=== PATIENT | female | born 1955 | race Caucasian/White ===

== ENCOUNTER 2018-06-10 18:19 | Inpatient (IN) ==
[2018-06-10] MEDS ORDERED: Sodium Chloride 0.9% 1,000 ML PRIMARY IV ONE (18:46)
[2018-06-10 19:25] LABS: BASOPHILS # (AUTO) 0.04 10*3/UL; BASOPHILS % (AUTO) 0.3 % (0-1); EOSINOPHILS # (AUTO) 0.19 10*3/UL; EOSINOPHILS % (AUTO) 1.5 % (0-8); Hematocrit [HCT] 44.3 % (37.0-47.0); Hemoglobin [HGB] 14.3 g/dL (12.0-16.0); LYMPHOCYTES # (AUTO) 1.95 10*3/uL; MEAN CORPUSCULAR HGB CONC 32.3 g/dL (33-37); MEAN CORPUSCULAR VOLUME 92.9 FL (81-99); MEAN PLATELET VOLUME 10.2 FL (7.4-12.2); MONOCYTES # (AUTO) 0.48 10*3/UL (0.3-0.8); MONOCYTES % (AUTO) 3.7 % (5-15); NEUTROPHILS # (AUTO) 10.24 10*3/UL; NEUTROPHILS % (AUTO) 79.2 % (50-80); RED BLOOD COUNT 4.77 10^6/uL (4.20-5.40)
[2018-06-10 19:27] LABS: PLATELET MORPHOLOGY COMMENT NORMAL MORPHOLOGY (NORM); RBC MORPHOLOGY COMMENT NORMAL MORPHOLOGY (NORM); WBC MORPHOLOGY COMMENT NORMAL MORPHOLOGY (NORM)
[2018-06-10 19:41] LABS: BUN/CREATININE RATIO 18.18 (6-20)
--- NOTE | 2018-06-10 19:49 | PDOC ---
General Adult HPI - General Chief Complaint: General Medical Stated Complaint: Fever and not feeling that good for the last 3days Date Seen by Provider: 06/10/18 Time Seen by Provider: 18:20 Source: POSITIVE: Patient Exam Limitations: POSITIVE: No limitations Nurse's Notes Reviewed & Considered: Yes - History of Present Illness Initial Comment: The patient is a 63-year-old female who presents to the emergency department with complaints of fever and general malaise. She reports that several nights ago she had eaten some applesauce and cinnamon and her stomach became very upset. She ended up regurgitating some of this into the back of her throat when she was laying down. Ever since then she states she has not felt well. She states that she has been running a fever and had general malaise. She has had some mild cough however denies shortness of breath. She states that the pain in her stomach has improved at this point however she still feels queasy. She denies any sore throat or congestion. She has not had any pain or swelling in her extremities. Her oxygen levels were in the low 80s on room air on arrival and she was placed on O2 per nasal cannula. She does not normally wear oxygen at home. She does have a history of previous gastric bypass surgery several years ago and she states that after her surgery she was on oxygen for a period of time. She denies any known history of heart disease or blood clots. Have you received a tetanus shot in the past 10 years?: Unknown - Patient Home Medications Home Medications: Home Medications Ca 600 mg-D3 800 unit-mag oxide 50 qh-Ik-icxcbo-manganese-boron tablet 1 tab PO QDAY tab 01/18/17 ascorbic acid (vitamin C) 500 mg tablet 500 mg PO QDAY 01/18/17 cholecalciferol (vitamin D3) 2,000 unit tablet 2,000 unit PO QDAY tab 01/18/17 ferrous sulfate 325 mg (65 mg iron) tablet 325 mg PO QDAY tab 01/18/17 multivitamin with iron tablet 1 tab PO QDAY 01/18/17 omega-3 fatty acids-fish oil 360 mg-1,200 mg capsule 1 cap PO QDAY 01/18/17 ziprasidone 20 mg capsule 20 mg PO BID #180 cap 03/06/18 omeprazole 20 mg capsule,delayed release 20 mg PO QDAY #90 cap 03/13/18 - Patient Allergies Allergies/Adverse Reactions: Allergies Allergy/AdvReac Type Severity Reaction Status Date / Time simvastatin AdvReac NOT Verified 06/10/18 18:24 APPLICABLE Past Medical History - heen HEENT History: Denies History Cardiovascular History: DVTs, Hyperlipidemia Respiratory History: Asthma Gastrointestinal History: Denies History Additional Gastrointestinal History: ABDOMINAL PAIN Genitourinary History: Denies History Endocrine History: Type 2 Diabetes (oral) Additional Endocrine History: No longer symptomatic or taking medications after weight loss Musculoskeletal History: Denies History Prosthesis or Implant: No Neurological History: Denies History Blood Disorders: Denies History Psychiatric History: Other (please comment) Additional Psychiatric History: DELUSIONAL DISORDER Female Reproductive History: Denies History Obstetrical History: Denies History Cancer History: Denies History In Past Year Been Physically Harmed or Verbally Threatened: No History of MDRO: No History of Other Communicable Diseases: Yes (Mumps and measles) Tobacco Use: Never Smoker In the Past 12 Months, Have Used or Abuse Any Substance: None Previous Surgical History: Yes Type / Date of Surgery: GASTRIC BYPASS, VAG HYST,Alice, right elbow repair Anesthesia Reactions: No Malignant Hyperthermia: No Significant Family History: Cancer, Diabetes Additional Family History: Mother- diabetes, breast cancer. Brother-diabetes Past Medical History Reviewed: Reviewed - No Changes ROS - Limitations ROS Limitations: No Limitations Constitution: REPORTS: Chills, Fever, Other (General malaise) Cardiovascular: DENIES: Chest Pain Respiratory: REPORTS: Cough Non Productive. DENIES: Shortness Of Breath Neurological: REPORTS: Dizziness. DENIES: Headache, Numbness, Weakness Gastrointestinal: REPORTS: Abdominal Pain (She did have some epigastric abdominal pain which is now resolved), Nausea. DENIES: Vomitting Musculoskeletal: REPORTS: Denies MS Symptoms Genitourinary: REPORTS: Denies Symptoms Eyes: REPORTS: Denies Symptoms ENT: REPORTS: Denies Symptoms Skin: DENIES: Rash General Adult Exam - General Appearance General Appearance: POSITIVE: Alert, Cooperative, No Acute Distress - HEENT HEENT: POSITIVE: Head Inspection Nml, Ears Inspection Nml, Nose Inspection Nml, Pharynx Inspect. Nml - Neck Neck: POSITIVE: Normal Inspection. NEGATIVE: Lymphadenopathy - Respiratory Respiratory: POSITIVE: No Respiratory Distress, Other (She does have diminished breath sounds noted primarily on the right side) - Cardiovascular Cardiovascular: POSITIVE: Regular Rate & Rhythm, No Murmur Peripheral Pulses: Dorsalis-pedis (R): 2+, Dorsalis-pedis (L): 2+ - Abdomen Abdomen: Soft: (All Quadrants), Denies Tenderness: (All Quadrants), No Distention: (All Quadrants) - Skin Skin: POSITIVE: Normal Color, No Rash - Extremities Extremity: Normal ROM: (All Extremities), Normal Inspection: (All Extremities) - Neurological / Psychological Neurological: POSITIVE: Oriented X3, 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 CT of the chest showed no evidence of PE, there is a groundglass density in the left lung is most likely infectious in etiology per radiologist, moderate hiatal hernia. CT scan of the abdomen and pelvis shows no acute abnormalities per radiologist. Lab Results Reviewed by Me: Yes Lab Results:: Laboratory Results 06/10/18 06/10/18 06/10/18 19:12 19:12 19:12 WBC 12.93 H RBC 4.77 Hgb 14.3 Hct 44.3 MCV 92.9 MCH 30.0 MCHC 32.3 L RDW Std Deviation 42.6 RDW Coeff of Gayatri 12.8 Plt Count 222 MPV 10.2 Immature Gran % (Auto) 0.2 Neut % (Auto) 79.2 Lymph % (Auto) 15.1 Lyman % (Auto) 3.7 L Eos % (Auto) 1.5 Baso % (Auto) 0.3 Immature Gran # (Auto) 0.03 Neut # (Auto) 10.24 Lymph # (Auto) 1.95 Lyman # (Auto) 0.48 Eos # (Auto) 0.19 Baso # (Auto) 0.04 WBC Morphology Comment Normal morphology Plt Morphology Comment Normal morphology RBC Morph Comment Normal morphology D-Dimer 0.62 H VBG pH VBG pCO2 VBG HCO3 VBG Base Excess Sodium 137 Potassium 3.7 L Chloride 103 Carbon Dioxide 21 L Anion Gap 13 BUN 20 Creatinine 1.1 Estimated GFR 50 BUN/Creatinine Ratio 18.18 Glucose 191 H Calculated Osmolality 291.0 Lactic Acid Calcium 9.5 Magnesium 1.9 Total Bilirubin 0.7 AST 31 ALT 40 Alkaline Phosphatase 122 Troponin I C-Reactive Protein 19.3 H NT-Pro-B Natriuret Pep 65.3 Total Protein 7.0 Albumin 4.0 Globulin 3.0 Albumin/Globulin Ratio 1.30 Ur Collection Type Urine Color Urine Clarity Urine pH Ur Specific [place] Urine Protein Urine Glucose (UA) Urine Ketones Urine Occult Blood Urine Nitrate Urine Bilirubin Urine Urobilinogen Ur Leukocyte Esterase Urine RBC Urine WBC Ur Squamous Epith Cells Ur Renal Epithelial Cell Urine Crystals Urine Bacteria Urine Casts Urine Mucus Urine Trichomonas Urine Yeast Ur Culture Indicated? 06/10/18 06/10/18 06/10/18 19:12 19:12 19:14 WBC RBC Hgb Hct MCV MCH MCHC RDW Std Deviation RDW Coeff of Gayatri Plt Count MPV Immature Gran % (Auto) Neut % (Auto) Lymph % (Auto) Lyman % (Auto) Eos % (Auto) Baso % (Auto) Immature Gran # (Auto) Neut # (Auto) Lymph # (Auto) Lyman # (Auto) Eos # (Auto) Baso # (Auto) WBC Morphology Comment Plt Morphology Comment RBC Morph Comment D-Dimer VBG pH 7.48 H VBG pCO2 27 L VBG HCO3 20 L VBG Base Excess -3 L Sodium Potassium Chloride Carbon Dioxide Anion Gap BUN Creatinine Estimated GFR BUN/Creatinine Ratio Glucose Calculated Osmolality Lactic Acid 0.8 Calcium Magnesium Total Bilirubin AST ALT Alkaline Phosphatase Troponin I < 0.012 C-Reactive Protein NT-Pro-B Natriuret Pep Total Protein Albumin Globulin Albumin/Globulin Ratio Ur Collection Type Urine Color Urine Clarity Urine pH Ur Specific [place] Urine Protein Urine Glucose (UA) Urine Ketones Urine Occult Blood Urine Nitrate Urine Bilirubin Urine Urobilinogen Ur Leukocyte Esterase Urine RBC Urine WBC Ur Squamous Epith Cells Ur Renal Epithelial Cell Urine Crystals Urine Bacteria Urine Casts Urine Mucus Urine Trichomonas Urine Yeast Ur Culture Indicated? 06/10/18 21:06 WBC RBC Hgb Hct MCV MCH MCHC RDW Std Deviation RDW Coeff of Gayatri Plt Count MPV Immature Gran % (Auto) Neut % (Auto) Lymph % (Auto) Lyman % (Auto) Eos % (Auto) Baso % (Auto) Immature Gran # (Auto) Neut # (Auto) Lymph # (Auto) Lyman # (Auto) Eos # (Auto) Baso # (Auto) WBC Morphology Comment Plt Morphology Comment RBC Morph Comment D-Dimer VBG pH VBG pCO2 VBG HCO3 VBG Base Excess Sodium Potassium Chloride Carbon Dioxide Anion Gap BUN Creatinine Estimated GFR BUN/Creatinine Ratio Glucose Calculated Osmolality Lactic Acid Calcium Magnesium Total Bilirubin AST ALT Alkaline Phosphatase Troponin I C-Reactive Protein NT-Pro-B Natriuret Pep Total Protein Albumin Globulin Albumin/Globulin Ratio Ur Collection Type Clean catch urine Urine Color Yellow Urine Clarity Clear Urine pH 7.0 Ur Specific [place] <=1.005 Urine Protein Negative Urine Glucose (UA) Negative Urine Ketones Trace A Urine Occult Blood Trace-intact H Urine Nitrate Negative Urine Bilirubin Negative Urine Urobilinogen 0.2 Ur Leukocyte Esterase Small Urine RBC 0-1 Urine WBC 3-5 Ur Squamous Epith Cells Rare Ur Renal Epithelial Cell None Urine Crystals None Urine Bacteria None Urine Casts None Urine Mucus None Urine Trichomonas None Urine Yeast None Ur Culture Indicated? Culture not set CBC and BMP: 06/10/18 19:12 06/10/18 19:12 - Patient's Progress MDM / ED Course: The patient was afebrile here she had just taken some Tylenol at home. She is mildly tachycardic. Blood cultures and lactate were drawn with initial IV start. Her venous blood gas on arrival was unremarkable. She did receive 1 L bolus of normal saline. Her oxygen saturations were in the low to mid 80s on room air and she was placed on O2 per nasal cannula. Her blood work reveals an elevated white count at 12.9 and a CRP of 19.3. Her lactate was normal, d-dimer was mildly elevated, troponin was normal, glucose was 191, potassium was 3.4. Initial chest x-ray showed an ill-defined density in the left lung of unknown significance. CTA of the chest showed no evidence of PE, she does have groundglass density in the left lung most likely of infectious etiology per radiologist. CT scan of the abdomen and pelvis showed no acute abnormalities per radiologist. The respiratory panel was positive for rhinovirus/enterovirus. The patient has fever, hypoxia and evidence of pneumonia on CT. Given her history it is possible that this may be an aspiration pneumonia. These findings were discussed with the patient as well as with Dr. Hector. Dr. Hector has agreed to admit the patient for further treatment. She was started on Rocephin 2 g IV and Flagyl 500 mg IV. - Consult Counseled: POSITIVE: Patient, Family, RE: Lab Results, RE: Radiology Results, RE: DX, RE: Need for F/U Patient Care Time - Estimated PCT Patient Care Time (In Minutes): 35 Vital Signs - Recent Vital Signs Vital Signs: Vital Signs (Last 8 hours) Temp Pulse Resp BP Pulse Ox 06/10/18 18:19 97.9 F 122 H 22 138/86 94 - VS Reviewed Vital Signs Reviewed: Yes Discharge Clinical Impression: Pneumonia, Hypoxia, Hiatal hernia, Status post gastric bypass for obesity Discharge Disposition: Admit to Inpatient Condition: Stable Follow Up With: LAURA PHIPPS [Primary Care Provider] - Date Decision to Admit to Inpatient: 06/10/18 Time Decision to Admit to Inpatient: 21:30
--- NOTE | 2018-06-10 19:55 | EKG ---
[address] [address] Measurements Intervals [place] Rate: 102 P: 35 MT: 159 QRS: -14 QRSD: 96 T: 43 QT: 347 QTc: 406 Interpretive Statements SINUS TACHYCARDIA LEFT ATRIAL ENLARGEMENT RIGHT VENTRICULAR CONDUCTION DELAY POSSIBLE INFERIOR MYOCARDIAL INFARCTIO OF INDETERMINATE AGE No previous ECG available for comparison Electronically Signed On 06-11-18 16:05:50 MST by Duane Yoon [email or web address]
--- NOTE | 2018-06-10 20:45 | DI ---
AP CHEST X-RAY, 06/10/2018 6:46 PM : Clinical History: Hypoxia. Previous Exam: None at this facility. Soft Tissues: No acute soft tissue abnormality. Bones: Normal. Heart: Normal heart. Lungs: No infiltrates. Minimal bibasilar atelectasis. Effusion(s): None. Mediastinum: Normal mediastinum. Nodules: Ill-defined circular density in the left midlung field. Readin. No acute infiltrate or effusion. 2. There is an ill-defined 15 mm density in the left midlung field. Followup with a PA/lateral chest x-ray is recommended when the patient has recovered from her acute illness.
[2018-06-10 20:56] LABS: VENOUS PH 7.48 (7.32-7.42)
--- NOTE | 2018-06-10 21:03 | DI ---
CT ANGIOGRAM OF THE CHEST, 06/10/2018 6:48 PM : Clinical History: Hypoxia. Previous Exam: 01/09/2018. Technique: Scans from base of neck to lung bases with IV contrast. Bolus tracking protocol was used f or timing the injection. Non-MIPS and MIPS sagittal/coronal images generated. IV Contrast: 75 mL of Isovue 300. Base of Neck: Normal. Nodes: Normal axillary, supraclavicular, mediastinal, and right hilar lymph nodes. Multiple calcified left hilar lymph nodes. Heart: Normal. No coronary artery calcifications. Aorta: Normal thoracic aorta. No aneurysm or dissection. Pulmonary Arteries: Normal. No pulmonary emboli or infarcts; pulmonary hypertension. Lungs: Right lung is clear. Left lung has multiple patchy areas of "groundglass" opacification involv ing the upper lobe, lingular segments, and lower lobe. The unilateral involvement would favor an infe ctious etiology. Effusion(s): None. Nodules: Calcified 10 mm nodule in the left lower lobe. 3 mm noncalcified nodule along the lateral ma rgin of the right upper lobe. Bony Structures: Normal visualized portions of ribs, sternum, scapulae, clavicles, and shoulders. Nor mal visualized portions of thoracic spine. Limited Upper Abdomen: Normal adrenal glands and spleen. Normal limited views of liver and pancreas. Additional Findings: Moderate sized hiatal hernia. Evidence of previous surgery at the GE junction. READIN. No evidence of pulmonary embolism or pulmonary embolism with pulmonary infarction. There is pulmo nary arterial hypertension. 2. Diffuse unilateral left lung involvement with patchy areas of "groundglass" opacification. This c arries a broad differential but the unilateral involvement would favor an infectious etiology. 3. Old granulomatous disease. Noncalcified 3 mm right upper lobe nodule that requires no further fol lowup.
[2018-06-10 21:10] LABS: BILIRUBIN,URINE NEGATIVE (NEG); CLARITY,URINE CLEAR (CLEAR); COLOR,URINE YELLOW (Y); GLUCOSE, URINE (UA) NEGATIVE (NEG); OCCULT BLOOD,URINE Trace-intact (NEG); PROTEIN,URINE NEGATIVE (NEG); UROBILINOGEN,URINE 0.2 EU/dL (0.2)
[2018-06-10 21:17] LABS: RBC,URINE 0-1 /hpf; SQUAMOUS EPITHELIAL CELL,UR RARE; URINE SAMPLE TYPE CLEAN CATCH URINE
--- NOTE | 2018-06-10 21:23 | DI ---
CT ABDOMEN SCAN WITH IV CONTRAST, 06/10/2018 6:48 PM : Clinical History: Abdominal pain. Vomiting. Previous Exam: 12/29/2017. IV Contrast: Same bolus of contrast used for the CT angiogram of the chest. Oral Contrast: No oral contrast ordered. Rectal Contrast: No rectal contrast ordered. Lungs: Patchy "groundglass" opacities in the left lower lobe. Stomach and Duodenum: Moderate hiatal hernia. Previous surgery in the GE junction and proximal small bowel. Liver: Normal. Gallbladder: Status post cholecystectomy. Common bile duct measures 5-6 mm. Adrenal Glands: Normal. Spleen: Normal. Pancreas: Normal. Kidneys: Normal size, shape, position and contour. No hydronephrosis or hydroureter. No renal or uret eral calculi. Masses: None. Lymph Nodes: Normal. Ascites: No ascites. Free Air: None. Spine: Normal lower thoracic and lumbar spine. No blastic or lytic bony metastases. READING: Normal CT abdomen scan. CT PELVIS SCAN WITH IV CONTRAST, 06/10/2018 6:48 PM: Clinical History: See above. Previous Exam: 12/29/2017. Contrast: Same bolus used for CT scans of the chest and abdomen. Masses: No masses or enhancing lesions. Ascites: None. Free Air: None. Lymph Nodes: No adenopathy. Appendix: Normal. Small Bowel: Normal small bowel, terminal ileum, and ileocecal valve. Colon: Normal. Bladder: Normal. Uterus: Status post hysterectomy. Ovaries: Atrophic but normal left ovary. The right ovary is not visualized and may be surgically abse nt. Hernias: Midline ventral hernia superior to the umbilicus that contains only mesenteric fat. Bony Pelvis: Normal sacrum, pelvic bones, and hips. No blastic or lytic metastases. READING: Normal CT scan of the pelvis with IV contrast.
[2018-06-10] MEDS ORDERED: cefTRIAXone Inj 2 GM in Sodium Chloride 0.9% 100 ML IV ONE (21:35)
[2018-06-10] MEDS ORDERED: metroNIDAZOLE 500mg (Premix) 500 MG/100 ML BAG IV ONE (21:35)
--- NOTE | 2018-06-10 22:12 | PDOC ---
HPI - History of Present Illness History of Present Illness: This very nice 63-year-old female she stated that a few days ago had some applesauce and cinnamon and during the night had some severe heartburn which caused her to vomit but since she was laying flat she had swallowed back into her throat since then she has not felt well complains of cough and shortness of breath she was hypoxic in the ER in the 80s and does not usually wear oxygen. Her past medical history is significant for bypass surgery for gastric She feels much better this morning coughing subsided. Past Medical History Medical History: She is on Geodon for psychosis Tobacco Use: Never Smoker In the Past 12 Months, Have Used or Abuse Any of the Following Substance: None Medication / Allergies Home Medications: Home Medications Medication Instructions Recorded Confirmed Type Ca 600 mg-D3 800 unit-mag oxide 50 1 tab PO QDAY tab 01/18/17 06/10/18 History gm-Tb-xajfod-manganese-boron tablet ascorbic acid (vitamin C) 500 mg 500 mg PO QDAY 01/18/17 06/10/18 History tablet cholecalciferol (vitamin D3) 2,000 2,000 unit PO QDAY tab 01/18/17 06/10/18 History unit tablet ferrous sulfate 325 mg (65 mg 325 mg PO QDAY tab 01/18/17 06/10/18 History iron) tablet multivitamin with iron tablet 1 tab PO QDAY 01/18/17 06/10/18 History omega-3 fatty acids-fish oil 360 1 cap PO QDAY 01/18/17 06/10/18 History mg-1,200 mg capsule ziprasidone 20 mg capsule 20 mg PO BID #180 cap 03/06/18 06/10/18 Rx omeprazole 20 mg capsule,delayed 20 mg PO QDAY #90 cap 03/13/18 06/10/18 Rx release Allergies/Adverse Reactions: Allergies Allergy/AdvReac Type Severity Reaction Status Date / Time simvastatin AdvReac NOT Verified 06/10/18 18:24 APPLICABLE Review of Systems - Review of Systems All Systems: Reviewed & No Additional Complaints Except as Stated - Respiratory Respiratory: REPORTS: Cough - Cardiovascular Cardiovascular: DENIES: Negative System Review, Chest Pain, Edema, Syncope, Palpitations, Orthopnea, Paroxysmal Nocturnal Dyspnea, Other, See HPI - Gastrointestinal Gastrointestinal / Abdominal: DENIES: Negative System Review, Nausea, Vomiting, Diarrhea, Constipation, Abdominal Pain, Bloody Stool, Poor Appetite, Heartburn, Regurgitation, Bloating, Lactose Intolerance, Melena, Bright Red Blood per Rectum, Other, See HPI - Genitourinary Genitourinary: DENIES: Negative System Review, Pain, Burning, Hematuria, Incontinence, Urgency, Hesitant Stream, Decreased Stream, Nocutria, Discharge, Sexual Dysfunction, Other, See HPI Exam - Vitals Vital Signs: Vital Signs Temperature 97.9 F Temperature Source Temporal Artery Scan Pulse Rate [Pulse Oximeter] 122 Respiratory Rate 22 Blood Pressure [Right Arm] 138/86 Pulse Ox 94 Oxygen Flow Rate 2 Oxygen Delivery Method Nasal Cannula Height 5 ft 2 in Weight 230 lb - General General Appearance: No Acute Distress, Cooperative - Head Head Exam: Normal Inspection, Normocephalic, Atraumatic - Eye Eye Exam: POSITIVE: Normal Appearance, PERRL, EOMI, No Scleral Icterus - Respiratory Respiratory Exam: POSITIVE: Clear to Auscultation - Bilaterally, Breathing Non Labored, Normal To Percussion, Normal to Percussion and Palpation - Cardiovascular Cardiovascular Exam: POSITIVE: RRR, No Murmur, No Clicks, No Gallops, No Rubs, PMI Non-Displaced - GI/Abdominal GI/Abdominal Exam: POSITIVE: Normal Bowel Sounds, Non Tender, Non Distended, Soft, No Masses, No Hepatomegaly, No Splenomegaly, No Organomegaly - Extremities Extremities Exam: POSITIVE: No Clubbing Present, No Edema Present, No Cyanosis Present - Neurological Neurological Exam: POSITIVE: Alert, Oriented x 3, No Facial Droop, Speech Intact / Clear - Psychiatric Psychiatric Exam: POSITIVE: Normal Affect, Normal Mood Results - Labs CBC and BMP: 06/11/18 04:17 06/11/18 04:17 Assessment and Plan - Patient Problems (1) Hypoxia Current Visit: Yes Status: Acute Comment: Most likely secondary to aspiration pneumonia patient is on Rocephin and Flagyl her sats have improved Code(s): R09.02 - Hypoxemia (2) Pneumonia Current Visit: Yes Status: Acute Comment: most likely aspiration rom hx stat ceftriaxone 2 gr and flagyl iv q 8 500 mg Code(s): J18.9 - Pneumonia, unspecified organism (3) Viral upper respiratory infection Current Visit: Yes Status: Acute Comment: Continue supportive care Code(s): J06.9 - Acute upper respiratory infection, unspecified
[2018-06-10] MEDS ORDERED: LIDOCAINE W/ SODIUM BICARB 0.5 ML SYR SUBD PRN (22:44)
[2018-06-10] MEDS ORDERED: ALBUTEROL SULFATE 2.5 MG/3 ML NEB PRN (22:44)
[2018-06-10] MEDS ORDERED: BENZONATATE 100 MG CAPSULE PO PRN (22:44)
[2018-06-10] MEDS ORDERED: ONDANSETRON 4 MG/2 ML VIAL IVP PRN (22:44)
[2018-06-10] MEDS: HEPARIN 5000 UNIT/1 ML SUBCUT SCH (23:14)
[2018-06-11 05:15] LABS: BASOPHILS # (AUTO) 0.03 10*3/UL; BASOPHILS % (AUTO) 0.3 % (0-1); EOSINOPHILS # (AUTO) 0.37 10*3/UL; Hematocrit [HCT] 41.4 % (37.0-47.0); LYMPHOCYTES # (AUTO) 2.31 10*3/uL; MEAN CORPUSCULAR HEMOGLOBIN 29.3 PG (27-31); MEAN CORPUSCULAR HGB CONC 31.4 g/dL (33-37); MEAN CORPUSCULAR VOLUME 93.5 FL (81-99); MEAN PLATELET VOLUME 10.6 FL (7.4-12.2); MONOCYTES # (AUTO) 0.45 10*3/UL (0.3-0.8); MONOCYTES % (AUTO) 4.8 % (5-15); NEUTROPHILS # (AUTO) 6.12 10*3/UL; NEUTROPHILS % (AUTO) 65.9 % (50-80); RED BLOOD COUNT 4.43 10^6/uL (4.20-5.40)
[2018-06-11 05:20] LABS: PLATELET MORPHOLOGY COMMENT NORMAL MORPHOLOGY (NORM); RBC MORPHOLOGY COMMENT NORMAL MORPHOLOGY (NORM); WBC MORPHOLOGY COMMENT NORMAL MORPHOLOGY (NORM)
[2018-06-11 05:34] LABS: BLOOD UREA NITROGEN 15 mg/dL (7-22); BUN/CREATININE RATIO 21.42 (6-20); SERUM ALBUMIN 3.2 g/dL (3.5-4.8)
[2018-06-11] MEDS: metroNIDAZOLE 500mg (Premix) 500 MG/100 ML BAG IV SCH ×3 (05:38→21:38)
[2018-06-11] MEDS: HEPARIN 5000 UNIT/1 ML SUBCUT SCH ×3 (07:03→22:44)
[2018-06-11] MEDS: ASCORBIC ACID Chewable 500 MG TABLET PO SCH (08:41)
[2018-06-11] MEDS ORDERED: ZIPRASIDONE 20 MG PO SCH (09:00)
[2018-06-11] MEDS ORDERED: cefTRIAXone Inj 2 GM in Sodium Chloride 0.9% 100 ML IV SCH (22:15)
[2018-06-12] MEDS ORDERED: ACETAMINOPHEN 325 MG TABLET PO PRN (01:57)
[2018-06-12] MEDS: metroNIDAZOLE 500mg (Premix) 500 MG/100 ML BAG IV SCH (05:38)
[2018-06-12] MEDS: ZIPRASIDONE PO SCH ×2 (05:39→08:07)
[2018-06-12] MEDS: HEPARIN 5000 UNIT/1 ML SUBCUT SCH (05:45)
[2018-06-12] MEDS: ASCORBIC ACID Chewable 500 MG TABLET PO SCH ×4 (07:58→09:02)
[2018-06-12] MEDS: OMEPRAZOLE 20 MG CAPSULE PO SCH ×2 (07:58→08:07)
[2018-06-12] MEDS: FERROUS SULFATE 325 MG TABLET PO SCH ×3 (07:58→09:01)
[2018-06-12 12:07] VITALS: BP 128/64; RESP 24; TEMP 97.7; O2SAT 97
--- NOTE | 2018-06-12 12:32 | DCSUMMARY ---
Hospitalization Summary Admit Date: 06/10/2018 Discharge Date: 06/12/18 Primary Diagnosis:: aspiration pneumonia Hospital Course: This very pleasant 63-year-old female with a history of a gastric bypass that came in with symptoms consistent with pneumonia. She was admitted, treated with Rocephin and Flagyl with presumption that this was aspiration pneumonia. She stated to me that she felt like she had choked on a green sparrow, and was able to spit it up the night before discharge. She is feeling significantly better, has not had any fever, and wishes to go home. She still requiring 2 L of oxygen and her oxygen saturation was 80% on room air today. She has been tolerating anabolic therapy without difficulty. She is not vomiting. Assessment and Plan: 1. As per discharge assessments noted 2. Disposition: Patient is discharged home. 3. Condition on discharge, stable and improved. 4. Diet: regular diet 5. Activities: resume normal activities, but maintain oxygen at 2 L per nasal cannula over the next month or until instructed otherwise by primary physician 6. Follow-Up: 1. Dr. Sandoval in one week We will be ordering a modified barium swallow study to be done with occupational therapy to look for aspiration. It is unclear whether she has a stricture or an aspiration problem, but the patient seems to give no symptoms of choking or coughing when she eats. 7. Medications at the Time of Discharge: Home Medications Medication Instructions Recorded Confirmed Type Ca 600 mg-D3 800 unit-mag oxide 50 1 tab PO QDAY tab 01/18/17 06/10/18 History xv-Gf-xoksru-manganese-boron tablet ascorbic acid (vitamin C) 500 mg 500 mg PO QDAY 01/18/17 06/10/18 History tablet cholecalciferol (vitamin D3) 2,000 2,000 unit PO QDAY tab 01/18/17 06/10/18 History unit tablet ferrous sulfate 325 mg (65 mg 325 mg PO QDAY tab 01/18/17 06/10/18 History iron) tablet multivitamin with iron tablet 1 tab PO QDAY 01/18/17 06/10/18 History omega-3 fatty acids-fish oil 360 1 cap PO QDAY 01/18/17 06/10/18 History mg-1,200 mg capsule ziprasidone 20 mg capsule 20 mg PO BID #180 cap 03/06/18 06/10/18 Rx omeprazole 20 mg capsule,delayed 20 mg PO QDAY #90 cap 03/13/18 06/10/18 Rx release Amoxicillin/Potassium Clav 1 each PO BID #10 tablet 06/12/18 Rx [Augmentin 875-125 Tablet] Benzonatate [Tessalon Perle] 100 mg PO DAILY PRN #90 cap 06/12/18 Rx 8. Time, care, counseling and coordination of care for this discharge is less than 30 minutes. Exam - Vitals Vital Signs: Vital Signs Temperature 97.7 F Temperature Source Temporal Artery Scan Pulse Rate [Pulse Oximeter] 77 Pulse Rate 77 Respiratory Rate 24 Blood Pressure [Left Arm] 128/64 Blood Pressure [Right Arm] 123/64 Blood Pressure 117/89 Pulse Ox 97 Oxygen Flow Rate 2 Oxygen Delivery Method Nasal Cannula Height 5 ft 2 in Weight 237 lb 12.8 oz - General General Appearance: No Acute Distress, Cooperative - Eye Eye Exam: POSITIVE: No Scleral Icterus - ENT ENT Exam: POSITIVE: Mucous Membranes Moist - Neck Neck Exam: JVP is not Raised - Respiratory Respiratory Exam: POSITIVE: Breathing Non Labored, Coarse Breath Sounds - Cardiovascular Cardiovascular Exam: POSITIVE: RRR, No Murmur, No Clicks, No Gallops, No Rubs, No JVD - GI/Abdominal GI/Abdominal Exam: POSITIVE: Normal Bowel Sounds, Non Tender, Non Distended, Soft - Extremities Extremities Exam: POSITIVE: No Clubbing Present, No Edema Present, No Cyanosis Present - Neurological Neurological Exam: POSITIVE: Alert, Oriented x 3, No Facial Droop, Speech Intact / Clear, Moves All Extremities Equally Data Peritnent Studies: 06/10/18 06/10/18 06/10/18 19:12 19:12 19:12 WBC 12.93 H Hgb Hct Plt Count Sodium Potassium Chloride Carbon Dioxide Anion Gap BUN Creatinine Estimated GFR BUN/Creatinine Ratio Glucose Calculated Osmolality Calcium Phosphorus Magnesium 1.9 Total Bilirubin 0.7 AST 31 ALT 40 Alkaline Phosphatase 122 Troponin I < 0.012 C-Reactive Protein 19.3 H NT-Pro-B Natriuret Pep 65.3 Total Protein 7.0 Albumin 4.0 Globulin 3.0 Albumin/Globulin Ratio 1.30 Ur Strep pneumoniae Ag 06/10/18 06/11/18 06/11/18 23:17 04:17 04:17 WBC 9.29 Hgb 13.0 Hct 41.4 Plt Count 214 Sodium 141 Potassium 3.9 Chloride 110 Carbon Dioxide 25 Anion Gap 6 BUN 15 Creatinine 0.7 Estimated GFR > 60 BUN/Creatinine Ratio 21.42 H Glucose 89 Calculated Osmolality 291.0 Calcium 8.9 Phosphorus 3.1 Magnesium Total Bilirubin AST ALT Alkaline Phosphatase Troponin I C-Reactive Protein NT-Pro-B Natriuret Pep Total Protein Albumin Globulin Albumin/Globulin Ratio Ur Strep pneumoniae Ag Negative Procedures: [address] Medicine. [facility] [place] [address] PH: DD: [phone] FAX: [phone] ~DIAGNOSTIC IMAGING REPORT~ Patient: Rosa Brothers : 1955 Sex: F Age: 63 Exam Name: CT CTA Chest Non-Coronary [facility] Exam Date: 06/10/18 Report # : [id number] CPT Code: 25831 EMR/MR #: [id number] Ordering: HUY STEELE Admiting: Primary: Leo Sandoval MD Attending: Signed CT ANGIOGRAM OF THE CHEST, 06/10/2018 6:48 PM : Clinical History: Hypoxia. Previous Exam: 01/09/2018. Technique: Scans from base of neck to lung bases with IV contrast. Bolus tracking protocol was used for timing the injection. Non-MIPS and MIPS sagittal/coronal images generated. IV Contrast: 75 mL of Isovue 300. Base of Neck: Normal. Nodes: Normal axillary, supraclavicular, mediastinal, and right hilar lymph nodes. Multiple calcified left hilar lymph nodes. Heart: Normal. No coronary artery calcifications. Aorta: Normal thoracic aorta. No aneurysm or dissection. Pulmonary Arteries: Normal. No pulmonary emboli or infarcts; pulmonary hypertension. Lungs: Right lung is clear. Left lung has multiple patchy areas of "groundglass" opacification involving the upper lobe, lingular segments, and lower lobe. The unilateral involvement would favor an infectious etiology. Effusion(s): None. Nodules: Calcified 10 mm nodule in the left lower lobe. 3 mm noncalcified nodule along the lateral margin of the right upper lobe. Bony Structures: Normal visualized portions of ribs, sternum, scapulae, clavicles, and shoulders. Normal visualized portions of thoracic spine. Limited Upper Abdomen: Normal adrenal glands and spleen. Normal limited views of liver and pancreas. Additional Findings: Moderate sized hiatal hernia. Evidence of previous surgery at the GE junction. READIN. No evidence of pulmonary embolism or pulmonary embolism with pulmonary infarction. There is pulmonary arterial hypertension. 2. Diffuse unilateral left lung involvement with patchy areas of "groundglass" opacification. This carries a broad differential but the unilateral involvement would favor an infectious etiology. 3. Old granulomatous disease. Noncalcified 3 mm right upper lobe nodule that requires no further followup. Dictated By: 06/10/182050 AMANDA MCMAHAN MD. Signed By: 06/10/182102 AMANDA MCMAHAN MD. Patient Problems - Patient Problem List (1) Aspiration pneumonia Current Visit: Yes Status: Acute Code(s): J69.0 - Pneumonitis due to inhalation of food and vomit Qualifiers: Aspiration pneumonia type: due to regurgitated food Laterality: left Lung location: unspecified part of lung Qualified Code(s): J69.0 - Pneumonitis due to inhalation of food and vomit Category: Medical (2) Status post gastric bypass for obesity Current Visit: Yes Status: Chronic Comment: [facility], [place], 04/02/16 Code(s): Z98.84 - Bariatric surgery status Category: Surgical
== END 2018-06-12 14:39 | disposition home or self-care (01) | DRG 179 ==
LOC: ER 18:19 → MED/SURG 22:47
PROVIDERS: ADMIT Internal Medicine; ATTEND Internal Medicine